=== PATIENT | male | born 1960 | race Caucasian/White ===

== ENCOUNTER 2024-02-09 15:07 | Outpatient (CLI) | payer OTHER, SELFPAY ==
--- NOTE | ~2024-02-09 | CT_ITS ---
EXAMINATION: CT lung screening DATE: 02/09/2024 15:18 INDICATION: Z87.891 - Personal history of nicotine dependence TECHNIQUE: Computed tomography (CT) of the chest was performed without intravenous contrast. Addition al 3D reconstructions utilizing coronal maximum intensity projection (MIP) were performed. Automated exposure control and iterative reconstruction technique were employed. The dose-length product was 69 .10 mGy-cm. COMPARISON: None FINDINGS: There are few <6 mm peripheral nodular opacities at the bilateral apices likely related to pleural pa renchymal scarring. Linear discoid atelectasis/scarring at the basilar segments of the bilateral lowe r lobes, left greater than right. Additional peripheral atelectasis/scarring at the medial right midd le lobe. No pneumonia, pulmonary edema or pleural effusion. Heart size is normal. Atherosclerotic cor onary artery calcific lesion. No pericardial effusion. Thoracic aorta is normal in caliber. No pathol ogically enlarged thoracic lymphadenopathy. And severe lower cervical spondylosis. Mild thoracic dext rocurvature with mild spondylosis. Chronic mild compression fractures at T6 and T11. IMPRESSION: 1. Lung-RADS category 2: Benign appearance or behavior. Continue annual screening with noncontrast lo w-dose chest CT in 12 months. Reviewed, dictated and finalized at location B. EM CUTTER IMPRESSION: 1. Lung-RADS category 2: Benign appearance or behavior. Continue annual screeni ng with noncontrast low-dose chest CT in 12 months.
== END 2024-02-09 15:08 | disposition home or self-care (01) ==
LOC: ANHIMG 15:08
PROVIDERS: PCP Nurse Practitioner Adult Health; Visit Provider Nurse Practitioner Adult Health
DX: Z12.2 Encounter for screening for malignant neoplasm of respiratory organs (principal); Z87.891 Personal history of nicotine dependence
CPT/HCPCS: 71271

== ENCOUNTER 2024-02-10 09:19 | Outpatient (CLI) | payer OTHER, SELFPAY ==
[2024-02-10 19:21] LABS: Alanine Aminotransferase 16 U/L (6-50); Albumin Level 4.6 g/dL (3.5-5.1); Alkaline Phosphatase 80 U/L (38-126); Anion Gap 6 mmol/L (4-12); Aspartate Amino Transferase 38 U/L (17-59); Bilirubin,Total 0.5 mg/dL (0.2-1.3); Blood Urea Nitrogen 14 mg/dL (9-20); Calcium 9.3 mg/dL (8.4-10.2); Carbon Dioxide 26 mmol/L (22-30); Chloride 106 mmol/L (98-107); Cholesterol 241 mg/dL (0-200); Estimated Glomerular Filt Rate > 60; Glucose 97 mg/dL (65-110); HDL Direct 62 mg/dL; Potassium 4.1 mmol/L (3.4-5.0); Sodium 138 mmol/L (137-145); Triglycerides 142 mg/dL (<150)
[2024-02-10 19:32] LABS: LDL Cholesterol Direct 130 mg/dL
[2024-02-10 19:42] LABS: Hematocrit 49.6 % (42.0-52.0); Hemoglobin 15.9 g/dL (14.0-18.0); Mean Corpuscular HGB Conc 32.1 g/dl (32-36); Mean Corpuscular Hemoglobin 32.8 pg (26-34); Mean Corpuscular Volume 102.3 fl (80-100); Mean Platelet Volume 11.1 fl (7.4-10.4); Platelet Count Result 226 k/mm3 (150-375); Red Blood Count 4.85 M/mm3 (4.6-6.20); Red Cell Distribution Width 14.3 % (11.5-14.5); White Blood Count 8.8 K/mm3 (4.5-10.0)
[2024-02-10 19:51] LABS: Prostate Specific Antigen 0.9 ng/mL (< OR = 4.0)
[2024-02-10 20:21] LABS: Vitamin D 25 Hydroxy 38.4 ng/mL
== END 2024-02-10 09:20 | disposition home or self-care (01) ==
LOC: ANHBWCLAB 09:21
PROVIDERS: PCP Nurse Practitioner Adult Health; Visit Provider Nurse Practitioner Adult Health
DX: R53.83 Other fatigue (principal); Z13.9 Encounter for screening, unspecified; Z87.891 Personal history of nicotine dependence; Z12.5 Encounter for screening for malignant neoplasm of prostate; Z13.220 Encounter for screening for lipoid disorders
CPT/HCPCS: 36415; 80053; 80061; 82306; 82607; 84153; 84443; 85027; G0103

== ENCOUNTER 2024-02-12 11:30 | Outpatient (CLI) | payer OTHER, SELFPAY ==
--- NOTE | ~2024-02-12 | XR_ITS ---
EXAMINATION: XR soft tissue neck DATE: 02/12/2024 11:56 INDICATION: Dysphagia TECHNIQUE: AP and lateral views of the soft tissues of the neck were obtained. COMPARISON: None. FINDINGS: Patient is a Xiang. The airway is widely patent throughout. Normal epiglottis and prevertebral so ft tissues. No subglottic narrowing. There are atherosclerotic calcifications at the bilateral caroti d bulbs, right greater than left. Severe lower cervical spondylosis with and small to moderate sized anterior endplate osteophytes most prominent at C5-C6. Mild right apical pleural-parenchymal scarring . IMPRESSION: 1. Are unremarkable cervical soft tissues 2. Severe lower cervical spondylosis with small to moderate anterior endplate osteophytes. 3. Atherosclerotic calcifications at the bilateral carotid bulbs, right greater than left. Reviewed, dictated and finalized at location B. CRIMES DETECTIVE IMPRESSION: 1. Are unremarkable cervical soft tissues 2. Severe lower cervical spondylosis with small to moderate anterior endplate o steophytes. 3. Atherosclerotic calcifications at the bilateral carotid bulbs, right greater than left.
--- NOTE | ~2024-02-12 | XR_ITS ---
EXAMINATION: FACIAL BONES-3+VIEWS DATE: 02/12/2024 11:56 INDICATION: Chronic sinusitis TECHNIQUE: Open and closed mouth Merchant, Campuzano, submental and lateral views of the maxillofacial b ones and paranasal sinuses were obtained. COMPARISON: None. FINDINGS: Patient is edentulous. No fractures identified. Slight rightward bowing of the nasal septum. Increasi ng central lucency at the bilateral maxillary sinuses suggesting mucosal and/or wall thickening. IMPRESSION: 1. Mucosal and/or wall thickening with decreased central aeration of the bilateral maxillary sinuses. Reviewed, dictated and finalized at location B. OR HR GENERALIST IMPRESSION: 1. Mucosal and/or wall thickening with decreased central aeration of the bilate ral maxillary sinuses.
== END 2024-02-12 11:31 | disposition home or self-care (01) ==
LOC: ANHBWCLAB 11:33 → ANHBWCIMG 11:34
PROVIDERS: PCP Nurse Practitioner Adult Health; Visit Provider Nurse Practitioner Adult Health
DX: J32.9 Chronic sinusitis, unspecified (principal); R13.10 Dysphagia, unspecified; M47.812 Spondylosis without myelopathy or radiculopathy, cervical region; I65.23 Occlusion and stenosis of bilateral carotid arteries
CPT/HCPCS: 70220; 70360

== ENCOUNTER 2024-06-10 09:28 | Outpatient (CLI) | payer OTHER, SELFPAY ==
--- NOTE | ~2024-06-10 | XR_ITS ---
Left Shoulder Technique: AP and scapular Y views were obtained. Clinical History: Pain Findings: No fracture or dislocation is seen. Osseous alignment is anatomic. The glenohumeral and acr omioclavicular joint spaces are preserved. Soft tissues are unremarkable. Impression: Unremarkable left shoulder radiographs. Reviewed, dictated and finalized at [facility]. Impression: Unremarkable left shoulder radiographs.
--- NOTE | ~2024-06-10 | XR_ITS ---
Right Shoulder Technique: AP and scapular Y views were obtained. Clinical History: Pain Findings: No fracture or dislocation is seen. High riding humeral head suggests underlying rotator cu ff tear. The glenohumeral and acromioclavicular joint spaces are preserved. Soft tissues are unremark able. Impression: High riding humeral head suggests underlying rotator cuff tear. Reviewed, dictated and finalized at location . Impression: High riding humeral head suggests underlying rotator cuff tear.
== END 2024-06-10 09:29 | disposition home or self-care (01) ==
LOC: ANHBWCLAB 09:29 → ANHBWCIMG 09:30
PROVIDERS: PCP Nurse Practitioner Adult Health; Visit Provider Nurse Practitioner Adult Health
DX: M25.511 Pain in right shoulder (principal); M25.512 Pain in left shoulder
CPT/HCPCS: 73030

== ENCOUNTER 2024-06-24 01:16 | Day surgery (SDC) | payer OTHER, SELFPAY ==
[2024-06-15 13:08] VITALS: BMI 19.6
[2024-06-24 11:30] VITALS: BP 118/89; PULSE 96; RESP 16; TEMP 36.3; O2SAT 100; BMI 18.2
[2024-06-24] MEDS: LACTATED RINGERS 1,000 ML 150 ML IV CONT ×2 (12:15→14:03)
--- NOTE | 2024-06-24 12:37 | SUR.PREOP ---
Due to running behind on cases today, patient was notified of the delay.
--- NOTE | 2024-06-24 13:02 | P.PNAN_ITS ---
Anes - Initial Pre Proc Eval Procedure: Operation Date: 06/24/24 11:15 Proposed Procedures p Colonoscopy - Juan Carlos Bahena MD Date/Time: 06/24/24 13:02 Surgeon: Juan Carlos Bahena MD Pre Op Diagnosis: fecal abnormalities Patient Data Age: 64 Gender: M Height: 1.7 m Weight: 52.8 kg Last Vital Signs Temp 97.3 F L 06/24/24 11:30 Pulse 96 06/24/24 11:30 Resp 16 06/24/24 11:30 BP 118/89 06/24/24 11:30 Pulse Ox 100 06/24/24 11:30 O2 Del Method Room Air 06/24/24 11:30 Allergies Allergy/AdvReac Type Severity Reaction Status Date / Time No Known Allergies Allergy Verified 06/24/24 11:35 Home Medications ?Medication ?Instructions ?Recorded ?Confirmed ?Type ibuprofen 200 mg tablet (Advil) 200 mg PO Q6H PRN pain 01/29/24 06/24/24 History multivitamin (Multiple Vitamins 1 tablet PO DAILY 01/29/24 06/24/24 History tablet) rosuvastatin 5 mg tablet 5 mg PO QHS #90 tabs 02/12/24 06/24/24 Rx fluticasone propionate 50 2 spray intranasal DAILY #16 grams 06/10/24 06/24/24 Rx mcg/actuation nasal spray,suspension (Flonase Allergy Relief) Patient hx anesthesia problems: none Family hx anesthesia problems: none Results Review: All pre-operative results and documents have been reviewed as part of the pre- operative evaluation. [facility] Past Medical History Medical History (Updated 06/10/24 @ 11:38 by Alycia Bustamante APRN) Arthritis Allergies Surgical History Surgical History (Updated 01/29/24 @ 13:24 by Vilma Recio MA) H/O left inguinal hernia repair Family History Family History (Updated 01/29/24 @ 13:25 by Vilma Recio MA) Father Diabetes mellitus Hypertension Social History Social History (Updated 01/29/24 @ 13:26 by Vilma Recio MA) Smoking status: Current every day smoker Tobacco type: cigarettes Alcohol intake: current Alcohol use details: Beer weekend 3-4 Substance use: current Substance use type: marijuana Other substance usage details: smokes marijuana daily Do You Feel Safe in your Home?: Yes Lack of Transportation: No Lack of Food: Never True Current Housing: I Have Housing Concerned About Future Housing: No Difficulty Paying Gas/Electric Bills: No Difficulty Paying for Meds: No Currently Unemployed: No Education: High School Diploma/GED Difficulty w/ Childcare or Family Care: No Living arrangements: with roommate(s) 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/education 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 Informed Consent: The patient's anesthetic plan and its attendant risks and benefits were discussed with the patient/family/POA. Questions were solicited and answers provided to the satisfaction of the patient/family/POA.
--- NOTE | 2024-06-24 13:54 | P.HP_ITS ---
H&P: HPI History of Present Illness Date/Time: 06/24/24 13:54 Chief Complaint: Screening colonoscopy Narrative: This is the patient's first colonoscopy. There are no GI symptoms and there is no family history of colorectal cancer. Review of Systems Review of Systems: All systems reviewed & are unremarkable except as noted in HPI and below PMFSH Past Medical History Medical History (Updated 06/10/24 @ 11:38 by Alycia Bustamante APRN) Arthritis Allergies Surgical History Surgical History (Updated 01/29/24 @ 13:24 by Vilma Recio MA) H/O left inguinal hernia repair Family History Family History (Updated 01/29/24 @ 13:25 by Vilma Recio MA) Father Diabetes mellitus Hypertension Social History Social History (Updated 01/29/24 @ 13:26 by Vilma Recio MA) Smoking status: Current every day smoker Tobacco type: cigarettes Alcohol intake: current Alcohol use details: Beer weekend 3-4 Substance use: current Substance use type: marijuana Other substance usage details: smokes marijuana daily Do You Feel Safe in your Home?: Yes Lack of Transportation: No Lack of Food: Never True Current Housing: I Have Housing Concerned About Future Housing: No Difficulty Paying Gas/Electric Bills: No Difficulty Paying for Meds: No Currently Unemployed: No Education: High School Diploma/GED Difficulty w/ Childcare or Family Care: No Living arrangements: with roommate(s) 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 Gender identity (if verbalized by the patient): Male Agree to blood products: Yes Meds Home Medications and Allergies Home Medications ?Medication ?Instructions ?Recorded ?Confirmed ?Type ibuprofen 200 mg tablet (Advil) 200 mg PO Q6H PRN pain 01/29/24 06/24/24 History multivitamin (Multiple Vitamins 1 tablet PO DAILY 01/29/24 06/24/24 History tablet) rosuvastatin 5 mg tablet 5 mg PO QHS #90 tabs 02/12/24 06/24/24 Rx fluticasone propionate 50 2 spray intranasal DAILY #16 grams 06/10/24 06/24/24 Rx mcg/actuation nasal spray,suspension (Flonase Allergy Relief) Allergies Allergy/AdvReac Type Severity Reaction Status Date / Time No Known Allergies Allergy Verified 06/24/24 11:35 Vital Signs Vital Signs - 24 hr 06/24/24 11:30 Temperature 97.3 F L Pulse Rate 96 Respiratory Rate 16 Blood Pressure 118/89 Pulse Oximetry 100 Oxygen Delivery Room Air Exam Const: General: cooperative and healthy appearing Resp: Effort & Inspection: normal respiratory effort and able to speak in complete sentences Auscultation: clear to auscultation bilaterally Cardio: Rate: regular rate Rhythm: regular rhythm GI: Inspection: normal to inspection GI Palp: No No hepatosplenomegaly present Auscultation: normal bowel sounds Rectal Exam: deferred Skin: General skin exam: normal color Psych: Appearance: grossly normal Mental Status: mental status grossly normal Assessment and Plan Assessment and plan (1) Screening for colon cancer: Code(s): Z12.11 - Encounter for screening for malignant neoplasm of colon Status: Acute Assessment and Plan: The patient is deemed a good candidate for the procedure. Consent signed. Will proceed.
[2024-06-24 14:31] VITALS: BP 125/84; PULSE 81; RESP 20; O2SAT 100
[2024-06-24 14:41] VITALS: BP 114/79; PULSE 86; RESP 20; O2SAT 100
[2024-06-24 14:51] VITALS: BP 131/93; PULSE 71; RESP 25; O2SAT 100
== END 2024-06-24 15:05 | disposition home or self-care (01) ==
PROVIDERS: PCP Nurse Practitioner Adult Health; Referring Provider Nurse Practitioner Adult Health; Visit Provider Internal Medicine Gastroenterology
PROC: 0DJD8ZZ Inspection of Lower Intestinal Tract, Via Natural or Artificial Opening Endoscopic (ICD-10-PCS; CPT 45378; principal; 2024-06-24 11:15)
DX: Z12.11 Encounter for screening for malignant neoplasm of colon (principal); K57.30 Diverticulosis of large intestine without perforation or abscess without bleeding; M19.90 Unspecified osteoarthritis, unspecified site; F17.210 Nicotine dependence, cigarettes, uncomplicated; F12.90 Cannabis use, unspecified, uncomplicated; Z79.1 Long term (current) use of non-steroidal anti-inflammatories (NSAID); Z98.890 Other specified postprocedural states
CPT/HCPCS: 45378; J2003; J2704; J7120

== ENCOUNTER 2024-07-29 10:51 | Outpatient (CLI) | payer OTHER, SELFPAY ==
--- NOTE | ~2024-07-29 | MR_ITS ---
MRI of the right shoulder Technique: Axial proton-density fat-sat images, coronal proton density fat-sat and T2 fat-sat images, and sagittal T1-weighted and T2 fat-sat images were acquired. Clinical History: Rotator cuff tear Findings: There is minimal AC joint degenerative change. Coracoclavicular, coracoacromial, and coraco humeral ligaments appear intact. There are complete, full-thickness tears involving the entire supraspinatus and infraspinatus tendons , with fluid-filled gap measuring approximately 4.0 x 3.0 cm in extent. Subscapularis tendon is intac t with possible mild diffuse thinning distally. Tendon of the long head of the biceps is intact. No definite labral tear seen. Inferior glenohumeral ligament is intact. Humeral head is high riding. There are small glenohumeral j oint effusion with fluid passing through the rotator cuff defect into the subacromial/subdeltoid burs a. Suspected mild atrophy of the infraspinatus muscle belly. Impression: Complete, full-thickness tears of the entirety of the supraspinatus and infraspinatus tendons, as det chantale above. Possible mild atrophy of the infraspinatus muscle belly. High riding humeral head. Reviewed, dictated and finalized at location . Impression: Complete, full-thickness tears of the entirety of the supraspinatus and infrasp inatus tendons, as detailed above. Possible mild atrophy of the infraspinatus m uscle belly. High riding humeral head.
== END 2024-07-29 10:52 | disposition home or self-care (01) ==
PROVIDERS: PCP Nurse Practitioner Adult Health; Visit Provider Nurse Practitioner Adult Health
DX: M75.121 Complete rotator cuff tear or rupture of right shoulder, not specified as traumatic (principal)
CPT/HCPCS: 73221

== ENCOUNTER 2024-12-23 11:01 | Outpatient (CLI) | payer OTHER, SELFPAY ==
[2024-12-23 18:47] LABS: Alanine Aminotransferase 23 U/L (6-50); Albumin Level 4.7 g/dL (3.5-5.1); Alkaline Phosphatase 73 U/L (38-126); Anion Gap 7 mmol/L (4-12); Aspartate Amino Transferase 48 U/L (17-59); Bilirubin,Total 0.6 mg/dL (0.2-1.3); Blood Urea Nitrogen 14 mg/dL (9-20); Calcium 9.5 mg/dL (8.4-10.2); Carbon Dioxide 24 mmol/L (22-30); Chloride 107 mmol/L (98-107); Cholesterol 197 mg/dL (0-200); Estimated Glomerular Filt Rate > 60; Glucose 96 mg/dL (65-110); HDL Direct 54 mg/dL; Potassium 4.7 mmol/L (3.4-5.0); Sodium 138 mmol/L (137-145); Total Protein 8.5 g/dL (6.3-8.2); Triglycerides 93 mg/dL (<150)
== END 2024-12-23 11:02 | disposition home or self-care (01) ==
LOC: ANHBWCLAB 11:03
PROVIDERS: PCP Nurse Practitioner Adult Health; Visit Provider Nurse Practitioner Adult Health
DX: I25.10 Atherosclerotic heart disease of native coronary artery without angina pectoris (principal)
CPT/HCPCS: 36415; 80053; 80061

== ENCOUNTER 2025-01-11 10:11 | Outpatient (CLI) | payer MEDICARE, MEDICAID, SELFPAY ==
--- NOTE | ~2025-01-11 | US_ITS ---
EXAMINATION: US carotid duplex BI DATE: 01/11/2025 10:46 INDICATION: Occlusion and stenosis of unspecified carotid artery. TECHNIQUE: Grayscale, color Doppler, and pulsed Doppler images of the cervical carotid arteries were obtained. The degree of vessel stenosis is placed in one of the following categories: normal, <50%, 50-69%, >=70% but less than near- occlusion, near-occlusion, or total occlusion. Note that percent stenosis relative to normal distal artery lumen diameter is indirectly measured from velocity measurements as described by Edi, et al. Radiology 2003; 229:340-346. COMPARISON: None. FINDINGS: RIGHT: The right common carotid artery (CCA) peak systolic velocity (PSV) is 83 cm/s. The right internal carotid artery (ICA) PSV is 113 cm/s. The right ICA end- diastolic velocity (EDV) is 22 cm/s. The right ICA/CCA PSV ratio is 1.4. Grayscale and color Doppler images yield an estimate of <50% diameter reduction from plaque in the ICA. There is antegrade flow in the right vertebral artery. LEFT: The left CCA PSV is 79 cm/s. The left ICA PSV is 91 cm/s. The left ICA EDV is 17 cm/s. The left ICA/CCA PSV ratio is 1.1. Grayscale and color Doppler images yield an estimate of <50% diameter reduction from plaque in the ICA. There is retrograde flow in the left vertebral artery. IMPRESSION: 1. <50% stenosis in the right internal carotid artery. 2. <50% stenosis in the left internal carotid artery. 3. Retrograde flow in left vertebral artery, consistent with subclavian steal. Reviewed, dictated and finalized at location E.
--- OUTSIDE RECORDS SUMMARY | 2025-01-11 11:42 | XMS_ITS | Clinical Summary ---
Author Organization [facility] Address [address] [place] [address] Care Team Providers Care Milled Rubber Tender Name Role Phone SilviaAlycia jones COLLIN Primary Care Provider Allergies No known active allergies Medications fluticasone propionate (FLONASE) 50 mcg/actuation nasal spray USE 2 SPRAY(S) IN EACH NOSTRIL ONCE DAILY 08/21/2024 Active rosuvastatin (CRESTOR) 5 mg tablet Take 1 tablet (5 mg total) by mouth nightly at bedtime 08/19/2024 Active Active Problems Problem Noted Date Diagnosed Date Rotator cuff arthropathy of right shoulder 09/10 Surgical History Surgery Date Site/Laterality Comments INGUINAL HERNIA REPAIR 12/25/2012 Medical History Medical History Date Comments Hypercholesteremia Social History Tobacco Use Types Packs/Day Years Used Date Smoking Tobacco: Every Day Cigarettes Sex and Gender Information Value Date Recorded Sex Assigned at Not on file 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 Gender Identity Not on file Sexual Orientation Not on file Obstetrics History Last Filed Vital Signs Vital Sign Reading Time Taken Comments Blood Pressure 130/73 09/10/2024 10:21 AM CDT Pulse 70 09/10/2024 10:21 AM CDT Temperature - - Respiratory Rate - - Oxygen Saturation - - Inhaled Oxygen Concentration - - Weight 54.3 kg (119 lb 9.6 oz) 09/10/2024 10:21 AM CDT Height 171.5 cm (5' 7.5) 09/10/2024 10:21 AM CD T Body Mass Index 18.46 09/10/2024 10:21 AM CDT Plan of Treatment Health Maintenance Due Date Last Done Comments Colon Cancer Screening-Colonoscopy 1960 Depression Screening 1960 Fall Risk Assessment 1960 Hepatitis C Screening 1960 Prostate Cancer Screening-PSA 1960 DTaP/Tdap/Td Vaccine (1 - Tdap) 01/07/1971 Hepatitis B Screening 01/07/1978 Pneumococcal vaccine 65+ (1 of 2 - PCV) 01/07/1979 Zoster Vaccine (1 of 2) 01/07/2010 Covid-19 Vaccine (4 - season) 2024 04/20/2021, 09/05/2020, 08/15/2020 Influenza Vaccine (#1) 2024 01/11/2021 Abdominal Aortic Aneurysm (A AA) Screen 01/07/2025 Well Visit 65+ 01/07/2025 Insurance [facility] Care Teams Milled Rubber Tender Relationship Specialty Start Date End Date Alycia Bustamante NP [address] [place] [address] PCP - General Nurse Practitioner 08/12/24
== END 2025-01-11 10:12 | disposition home or self-care (01) ==
PROVIDERS: PCP Nurse Practitioner Adult Health; Visit Provider Nurse Practitioner Adult Health
DX: I65.23 Occlusion and stenosis of bilateral carotid arteries (principal)
CPT/HCPCS: 93880

== ENCOUNTER 2025-01-27 14:27 | Outpatient (CLI) | payer MEDICARE, MEDICAID, SELFPAY ==
--- NOTE | ~2025-01-27 | CT_ITS ---
EXAMINATION: CTA chest DATE: 01/27/2025 15:02 INDICATION: Other transient cerebral ischemic attack. TECHNIQUE: Computed tomographic angiography (CTA) of the chest was performed with 100 mL Omnipaque-350 intravenous contrast. Automated exposure control and iterative reconstruction technique were employed. The dose-length product was 202.67 mGy-cm. Maximum intensity projection 3D-reconstructions of the aorta and other arteries were constructed. COMPARISON: Chest CT 02/09/2024, ultrasound carotid 01/11/2025 FINDINGS: There is mild emphysema. There is mild scarring at the lung apices. There is a new 10 mm nodule in right upper lobe. There is a new 6 mm nodule in right upper lobe. There is mild atelectasis bilaterally. There is mucous plugging in left lower lobe. No pleural effusion. There is severe stenosis of proximal left subclavian artery. The heart size is normal. There are coronary artery calcifications. No pericardial effusion. There is no pulmonary embolus. The aorta is normal in caliber. Aortic atherosclerosis is noted. There is severe cervical spondylosis and mild thoracic spondylosis. IMPRESSION: 1. Aortic atherosclerosis. No aneurysm or dissection. 2. New 10 mm nodule in right lung upper lobe suspicious for primary bronchogenic carcinoma. Consider PET/CT or CT-guided biopsy. 3. Mild emphysema. 4. Severe stenosis in proximal left subclavian artery with flow reversal in left vertebral artery seen on recent ultrasound, consistent with subclavian steal. Reviewed, dictated and finalized at location E. IMPRESSION: 1. Aortic atherosclerosis. No aneurysm or dissection. 2. New 10 mm nodule in right lung upper lobe suspicious for primary bronchogeni c carcinoma. Consider PET/CT or CT-guided biopsy. 3. Mild emphysema. 4. Severe stenosis in proximal left subclavian artery with flow reversal in lef t vertebral artery seen on recent ultrasound, consistent with subclavian steal.
[2025-01-27 14:55] LABS: Estimated Glomerular Filt Rate > 60
--- OUTSIDE RECORDS SUMMARY | 2025-01-27 15:00 | XMS_ITS | Clinical Summary ---
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
== END 2025-01-27 14:28 | disposition home or self-care (01) ==
PROVIDERS: PCP Nurse Practitioner Adult Health; Visit Provider Nurse Practitioner Adult Health
DX: G45.8 Other transient cerebral ischemic attacks and related syndromes (principal); I70.0 Atherosclerosis of aorta; J43.9 Emphysema, unspecified
CPT/HCPCS: 71275; Q9967

== ENCOUNTER 2025-02-10 09:46 | Outpatient (CLI) | payer MEDICARE, MEDICAID, SELFPAY ==
--- NOTE | ~2025-02-10 | CT_ITS ---
EXAMINATION:CT lung screening DATE: 02/10/2025 09:59 INDICATION: Screening TECHNIQUE: Computed tomography (CT) of the chest was performed without intravenous contrast. The dose-length product (DLP) was 71.50 mGy-cm. COMPARISON: 01/27/2025, and February 09, 2024 FINDINGS: 10 mm right upper lobe mass, image 28 series 4 not significantly changed compared to the January 27 exam. This is new however compared to the 2023 exam. The 6 mm nodules not clearly identified. The remainder the exam is unchanged and unremarkable in appearance. IMPRESSION: 10 mm right upper lobe nodule/mass again, concerning for bronchogenic malignancy. Correlation with PET CT or biopsy recommended. Reviewed, dictated and finalized at location A. ERSITY CONTROLLER IMPRESSION: 10 mm right upper lobe nodule/mass again, concerning for bronchoge marshall malignancy. Correlation with PET CT or biopsy recommended.
--- OUTSIDE RECORDS SUMMARY | 2025-02-10 10:27 | XMS_ITS | Clinical Summary ---
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
== END 2025-02-10 09:47 | disposition home or self-care (01) ==
LOC: ANHIMG 09:49
PROVIDERS: PCP Nurse Practitioner Adult Health; Visit Provider Nurse Practitioner Adult Health
DX: Z12.2 Encounter for screening for malignant neoplasm of respiratory organs (principal); Z87.891 Personal history of nicotine dependence; R91.1 Solitary pulmonary nodule
CPT/HCPCS: 71271

== ENCOUNTER 2025-02-17 09:33 | Outpatient (CLI) | payer MEDICARE, MEDICAID, SELFPAY ==
--- NOTE | ~2025-02-17 | PE_ITS ---
EXAMINATION: PET skull to mid thigh DATE: 02/17/2025 11:48 INDICATION: Lung nodule TECHNIQUE: Blood glucose level was 114 mg/dL. 8.502 mCi of 18-fluorodeoxyglucose (18-FDG) was administered i.v. Low dose computed tomography (CT) images were acquired from the base of the brain to the proximal thighs for attenuation correction and anatomic localization. Positron emission tomography (PET) images were acquired in the same distribution beginning 71 minutes after injection. Images including fused PET/CT images were reconstructed in axial, coronal, and sagittal planes. Automated exposure control technique was employed. The dose- length product was 493.23mGy-cm. COMPARISON: None FINDINGS: Head/neck: There is symmetric increased activity in the oral cavity, palatine tonsils, parotid glands, submandibular glands, laryngeal muscles and ocular muscles without CT correlate, likely physiologic. No pathologically enlarged cervical lymphadenopathy or suspicious foci of increased FDG uptake in the visualized head or neck. Chest: Mild emphysema. 11 mm right apical nodule with increased FDG activity with maximal SUV of 5.2 which concerning for primary bronchogenic carcinoma. Minimal activity with maximal SUV of 2.1 associated with a second 6 mm nodule in the intersegment right upper lobe and with maximal SUV of 1.8/with a 5 mm nodule situated amongst and branching bronchi at the more central right upper lobe. Mild respiratory motion and dependent atelectasis in both lungs. No other suspicious pulmonary nodules or other pulmonary infiltrates. No pleural effusion. Heart size is normal. Atherosclerotic coronary artery calcification. No pericardial effusion. Thoracic aorta is normal in caliber. 1.4 x 0.9 cm FDG avid precarinal lymph node with maximal SUV of 5.2. There are also couple tiny foci of increased uptake with maximal SUV of 4.0 and 3.4 at the right hilum likely associated with smaller lymph nodes which are unable to be distinguished from the adjacent vasculature on noncontrast imaging. Heart size is normal. Atherosclerotic coronary artery calcifications. No pericardial effusion. Thoracic aorta is normal in caliber. Abdomen/pelvis/proximal thighs: Physiologic renal accumulation and excretion of FDG activity in the kidneys, bladder and along portions of ureters. Normal degree and heterogenous pattern of increased uptake throughout the liver without radiologic correlate or dominant FDG avid lesion. The gallbladder, pancreas, spleen and bilateral adrenal glands are normal. Mild uptake scattered throughout the bowels without radiologic correlate, also likely physiologic. Mild diverticulosis with sigmoid colon predominance and without adjacent from trace stranding to suggest diverticulitis. There is calcified atherosclerosis of the aorta and many of the other arteries. No other abnormal foci of increased FDG uptake or pathologically enlarged lymphadenopathy in the abdomen, pelvis or proximal thighs. Musculoskeletal: Severe lower cervical and mild thoracic and lumbar spondylosis. No suspicious lytic, blastic or abnormally FDG avid bone lesions. IMPRESSION: 1. Increased uptake associated with 3 small pulmonary nodules in the right upper lobe the largest and most intense measuring 1 cm at the apex. This could be infectious/inflammatory or malignant in etiology and would recommend CT-guided biopsy of the largest right apical nodule. 2. Mild uptake associated with a normal-sized precarinal and couple right hilar lymph nodes which could be either reactive or metastatic 3. No other lesions suspicious for malignancy, either primary or metastatic, in the abdomen or pelvis. Reviewed, dictated and finalized at location A. [facility]YPIST IMPRESSION: 1. Increased uptake associated with 3 small pulmonary nodules in the right uppe r lobe the largest and most intense measuring 1 cm at the apex. This could be i nfectious/inflammatory or malignant in etiology and would recommend CT-guided b iopsy of the largest right apical nodule. 2. Mild uptake associated with a normal-sized precarinal and couple right hilar lymph nodes which could be either reactive or metastatic 3. No other lesions suspicious for malignancy, either primary or metastatic, in the abdomen or pelvis.
== END 2025-02-17 09:34 | disposition home or self-care (01) ==
PROVIDERS: PCP Nurse Practitioner Adult Health; Visit Provider Nurse Practitioner Adult Health
DX: R68.89 Other general symptoms and signs (principal); R91.8 Other nonspecific abnormal finding of lung field
CPT/HCPCS: 78815; A9552